=== PATIENT | female | born 1955 | race Caucasian/White ===

== ENCOUNTER → 2017-02-02 | Outpatient (CLI) | payer BC ==
[~2017-02-02] MED LIST: ASPI81TA25 PO; BIMA0.038 OPB; CLC100X PO; CMD/25 PO; FERR324T PO; SENN8.6T2 PO; citracel PO
--- NOTE | 2017-02-02 10:37 | DIAGNOSTIC IMAGING REPORT ---
RIGHT ANKLE MIN 3 VIEWS ROUTINE CLINICAL HISTORY: RIGHT ANKLE PAIN Right pain. COMPARISON: None. DISCUSSION: Minimal degenerative change throughout the ankle. Heel spur. Ossification Achilles tendon insertion. There is no evidence for soft tissue swelling. IMPRESSION: Heel spur. Mild degenerative change. No acute process. Electronically signed by: Omar He M.D. 02/02/2017 10:36 AM Dictated Date/Time: 02/02/2017 10:34 AM
== END | disposition home or self-care (01) ==
LOC: C.RAD1850 10:26
PROVIDERS: ATTEND Internal Medicine
DX: M25.571 Pain in right ankle and joints of right foot (principal); M25.471 Effusion, right ankle

== ENCOUNTER → 2017-06-01 | Outpatient (CLI) | payer BC | END | disposition home or self-care (01) | LOC: C.RDSM 10:34 | PROVIDERS: ATTEND Physical Medicine & Rehabilitation Sports Medicine | DX: M79.671 Pain in right foot (principal) ==

== ENCOUNTER 2018-12-07 10:32 | Inpatient (IN) ==
--- NOTE | 2018-11-22 14:02 | Anesthesiology Consultation ---
Date of Service November 22, 2018 Assessment & Plan (1) Encounter for pre-operative examination: Plan: - S/P RIGHT FOOT CORRECTION/2ND TOE CROSSOVER DEFORMITY CORRECTION= 05/26/18= [place] [facility] [place]io=07/20/18= prior chest heaviness resolved spontaneously (suspected related to depression/recent of her ). Continued on same regimen. Per cardio note= 11/24/18= Patient "does not have CAD or CHF. Her SSS is well controlled with her PPM.. She is consider[ed] a low to intermediate risk for surgery. The pacer should be interrogated preoperatively to determine the degree of pacer dependence and if needed changed to a non sensing mode." Reese Caceres (OR) made aware of cardio recommendations regarding pacemaker perioperatively- she voiced understanding and will arrange for pacer rep to be available DOS. Chart Review Chart Review: Acceptable Risk for Surgery and Patient seen in Pre Admission Testing Teaching & Discussion Pre-Anesthesia Teaching/Discussion Notes: Instructed NPO after midnight before surgery,except medications with 15 cc of water. Medication instructions provided according to the PAT guidelines. History Surgery Operation Date: 12/07/18 09:05 Proposed Procedures p Right Reverse Total Shoulder Replacement - Phani Plascencia, DO Height/Weight Height: 5 ft 4 in Weight: 113.4 kg Allergies Allergy/AdvReac Type Severity Reaction Status Date / Time Sulfa (Sulfonamide Allergy Severe HOT Verified 11/08/18 10:55 Antibiotics) FLASHES,SWEATING,DIFFICULTY BREATHING propoxyphene Allergy Intermediate "BODY Verified 11/08/18 10:55 JERKS"-HYPERACTIVE Medications Home Medications Medication Instructions Recorded Confirmed Last Taken cholecalciferol (vitamin D3) 1,000 unit PO QAM 11/08/18 11/08/18 Unknown [Vitamin D3] ibuprofen [Advil] 800 mg PO QID PRN 11/08/18 11/08/18 Unknown losartan 50 mg PO QAM 11/08/18 11/08/18 Unknown metoprolol succinate 50 mg PO QAM 11/08/18 11/08/18 Unknown montelukast 10 mg PO QAM 11/08/18 11/08/18 Unknown omeprazole 20 mg PO QAM 11/08/18 11/08/18 Unknown sumatriptan succinate 25 mg PO UD PRN 11/08/18 11/08/18 Unknown tramadol 50 mg PO Q6H PRN 11/08/18 11/08/18 Unknown zinc 50 mg PO QAM 11/08/18 11/08/18 Unknown Past Medical History Medical History Chronic back pain LOWER BACK GERD (gastroesophageal reflux disease) CONTROLLED Glaucoma Hypertension Migraine Morbid obesity Osteoarthritis Pacemaker BIOTRONIK; IMPLANTED 10/29 AVB/SSS; REPLACEED Pulmonary hypertension MILD TO MODERATE (42-47MMHG) Past Family History Family History Father Family hx of colon cancer Past Surgical History Surgical History H/O foot surgery RIGHT FOOT CORRECTION/2ND TOE CROSSOVER DEFORMITY CORRECTION= 05/26/18= [place] [facility] [place]/O of nasal cauterization History of appendectomy History of cardiac cath 2015= NO STENTS History of cataract surgery B/L History of section History of dilatation and curettage History of repair of rotator cuff RIGHT History of sinus surgery X2 History of total knee replacement B/L Pacemaker BIOTRONIK; IMPLANTED 10/29 AVB/SSS; REPLACEED Past Anesthesia History No Hx of Anesthesia Complications and No Family Hx of Anesthesia Complications History of PONV No Motion Sickness Screening History of Motion Sickness: Yes Social History Smoking Status: Never smoker Do You Dip or Chew Tobacco: No Hx Alcohol Use: No Hx Substance Use: No Exercise / Class Metabolic Activity III < 4 Walking/Shop/Light housework Review of Systems Patient denies chest pain, shortness of breath, cough, wheezing, palpitations. Physical Exam Vital Signs VITALS BP 136/69 P 59 TEMP 97.7 SP02 95%RA RESP 18 PHYSICAL Full neck and c-spine range of motion. Full TMJ range of motion. TMD 3 finger breaths Mallampati Score 3 Dentition: lower/upper partials Lungs: clear throughout to auscultation Cardiac: regular rate and rhythm, no murmurs noted Spine: normal Carotid arteries: negative bruit Extremities: no edema Testing Electrocardiogram Date: 05/04/18 Atrial paced rhythm at 60bpm. Chest X-Ray Date: 11/22/18 Findings: + NAD Echocardiogram Date: 08/10/16 EF 60%. No RWMA. Mild AV sclerosis/MR/PI. Mild to moderate pulmonary HTN. Estimated PASP 42-47mmhg. Moderate TR. Pacemaker wire noted in right heart. Grade I DD. Stress Test Date: 08/10/16 Type: nuclear (LEXISCAN) Stress EKG negative. Nuclear imaging findings of inferolateral ischemia. Subsequent 08/2016 cardiac cath done. Cardiac Catheterization Date: 08/31/16 Angiographically normal coronary arteries. At least moderate LVH. LVEF 70%. Maximize medical therapy recommended. Other Testing Pacer check= 09/13/19= [employer] "normal implantable pacemaker remote follow-up. No significant device-related abnormalities were noted." RAP 43%. RVP 0%. Mode DDD. Laboratory Results 11/22/18 14:22 11/22/18 14:22 Blood Type A Positive 11/22/18 14:22 Antibody Screen NEGATIVE 11/22/18 14: PT 10.6 Seconds (9.0-12.0) 11/22/18 14: INR 1.0 (0.9-1.1) 11/22/18 14:22 APTT 29.9 Seconds (21.0-31.0) 11/22/18 14:22
--- NOTE | 2018-11-22 14:03 | PAT Medication Instructions ---
Medication Instructions Date of Service November 22, 2018 Home Medications cholecalciferol (vitamin D3) 1,000 unit PO QAM ibuprofen [Advil] 800 mg PO QID PRN losartan 50 mg PO QAM metoprolol succinate 50 mg PO QAM montelukast 10 mg PO QAM omeprazole 20 mg PO QAM sumatriptan succinate 25 mg PO UD PRN tramadol 50 mg PO Q6H PRN zinc 50 mg PO QAM ASK your surgeon for instructions ibuprofen [Advil] 800 mg PO QID PRN DO NOT take the morning of surgery cholecalciferol (vitamin D3) 1,000 unit PO QAM losartan 50 mg PO QAM montelukast 10 mg PO QAM zinc 50 mg PO QAM Take morning of surgery With a small sip of water, OTHERWISE NOTHING TO EAT OR DRINK AFTER MIDNIGHT: metoprolol succinate 50 mg PO QAM omeprazole 20 mg PO QAM sumatriptan succinate 25 mg PO UD PRN (if needed) tramadol 50 mg PO Q6H PRN (okay to take up to 4 hours prior to surgery if needed) Other Notes If you have any questions please call us at [phone] or [phone] or [phone] or [phone]
--- NOTE | 2018-11-22 14:48 | XRay Report ---
XR chest Pre-admission PA/Lat CLINICAL HISTORY: pat preoperative evaluation COMPARISON STUDY: 12/30/2012 FINDINGS: Lungs are clear. Diaphragms are smooth. There is a permanent bipolar cardiac pacemaker. IMPRESSION: No acute process. The above report was generated using voice recognition software. It may contain grammatical, syntax or spelling errors. Electronically signed by: Omar He M.D. 11/22/2018 2:46 PM
[2018-11-22 14:56] LABS: Basophils # (auto) 0.03 K/uL (0-0.2); Basophils % (auto) 0.4 %; Eosinophils # (auto) 0.21 K/uL (0-0.5); Eosinophils % (auto) 3.1 %; Hematocrit (blood only) 42.3 % (37-47); Hemoglobin 13.9 g/dL (12.0-16.0); Immature Granulocytes # (auto) 0.02 K/uL (0.00-0.02); Immature Granulocytes % (auto) 0.3 %; Lymphocytes # (auto) 1.31 K/uL (1.2-3.4); Lymphocytes % (auto) 19.5 %; Mean Corpuscular Hgb Conc 32.9 g/dL (32-36); Mean Corpuscular Volume 90.8 fL (80-100); Mean Platelet Volume 10.5 fL (7.4-10.4); Monocytes # (auto) 0.44 K/uL (0.11-0.59); Monocytes % (auto) 6.5 %; Neutrophils # (auto) 4.72 K/uL (1.4-6.5); Neutrophils % (auto) 70.2 %; Platelet Count 193 K/uL (130-400); RDW Coefficient of Variation 14.3 % (11.5-14.5); RDW Standard Deviation 47.3 fL (36.4-46.3); Red Blood Count 4.66 M/uL (4.2-5.4); White Blood Count 6.73 K/uL (4.8-10.8)
[2018-11-22 15:10] LABS: Partial Thromboplastin Ratio 1.1; Partial Thromboplastin Time 29.9 Seconds (21.0-31.0); Prothrombin Time 10.6 Seconds (9.0-12.0)
[2018-11-22 16:02] LABS: Calcium 8.3 mg/dl (8.5-10.1); Creatinine Clr Calc Pharmacy 87.7 ml/min; Est GFR (African American) 90.3; Est GFR (Non-African American) 77.9
--- NOTE | 2018-12-06 19:54 | History & Physical Report ---
Date of Service December 06, 2018 Assessment & Plan (1) Rotator cuff arthropathy of right shoulder: We will proceed with a reverse right shoulder arthroplasty. Postoperatively she will be kept overnight at the hospital for postop medical management. She did have a MRSA nasal swab which was positive. Will use vancomycin perioperatively. She plans to use energy physical therapy upon discharge. Present on Admission?: Yes History of Present Illness Chief Complaint: Rotator cuff arthropathy of the right shoulder Primary Care Provider: Amilcar Mackenzie is a pleasant 63-year-old female who is been dealing with chronic increasing right shoulder pain. She had a rotator cuff repair done about 8 year s ago. She initially did well but it has been getting worse recently. CT arthrogram of the shoulder shows a large retracted rotator cuff tear. After failing conservative treatment. She has elected to proceed with a reverse right shoulder arthroplasty. Allergies Allergy/AdvReac Type Severity Reaction Status Date / Time Sulfa (Sulfonamide Allergy Severe HOT Verified 11/08/18 10:55 Antibiotics) FLASHES,SWEATING,DIFFICULTY BREATHING propoxyphene Allergy Intermediate "BODY Verified 11/08/18 10:55 JERKS"-HYPERACTIVE Home Medications Home Medications Medication Instructions Recorded Confirmed Type cholecalciferol (vitamin D3) 1,000 unit PO QAM 11/08/18 11/08/18 History [Vitamin D3] ibuprofen [Advil] 800 mg PO QID PRN 11/08/18 11/08/18 History losartan 50 mg PO QAM 11/08/18 11/08/18 History metoprolol succinate 50 mg PO QAM 11/08/18 11/08/18 History montelukast 10 mg PO QAM 11/08/18 11/08/18 History omeprazole 20 mg PO QAM 11/08/18 11/08/18 History sumatriptan succinate 25 mg PO UD PRN 11/08/18 11/08/18 History tramadol 50 mg PO Q6H PRN 11/08/18 11/08/18 History zinc 50 mg PO QAM 11/08/18 11/08/18 History Past Med/Surg History Medical History Chronic back pain LOWER BACK GERD (gastroesophageal reflux disease) CONTROLLED Glaucoma Hypertension Migraine Morbid obesity Osteoarthritis Pacemaker BIOTRONIK; IMPLANTED 10/29 AVB/SSS; REPLACED Pulmonary hypertension MILD TO MODERATE (42-47MMHG) Surgical History H/O foot surgery RIGHT FOOT CORRECTION/2ND TOE CROSSOVER DEFORMITY CORRECTION= 05/26/18[place] [facility] [place]er[place] History of appendectomy History of cardiac cath 2015= NO STENTS History of cataract surgery B/L History of section History of dilatation and curettage History of repair of rotator cuff RIGHT History of sinus surgery X2 History of total knee replacement B/L Pacemaker BIOTRONIK; IMPLANTED 10/29 AVB/SSS; REPLACED Family History Father Family hx of colon cancer Social History Preferred Language: Congolese Communication Ability: Effective Tunnel Man Required: No Beliefs That Will Affect Care: None Current Living Situation: Family Other Information That Helps Us Care for You: No Feels Safe at Home: Yes Safety Concerns: Feels Safe At This Time Smoking Status: Never smoker Hx Alcohol Use: No Hx Substance Use: No Review of Systems All systems reviewed & are unremarkable except as noted in HPI & below Physical Exam Constitutional: WD/WN, vitals as above Eyes: PERRL, conjunctivae normal, anicteric sclerae ENMT: external ear and nose normal, oropharynx normal Neck: trachea midline, no thyromegaly Respiratory: normal respiratory effort Cardiovascular: RRR, no murmur, no edema Gastrointestinal (Abdomen): normal bowel sounds, soft, nontender, no hepatosplenomegaly Musculoskeletal: Physical examination of the right shoulder reveals decreased range of motion and significant weakness. There is tenderness palpation along the anterior glenohumeral joint line. The right upper extremity is neurovascularly intact. Psychiatric: A+Ox3, euthymic affect Results & Data Diagnostic Findings Radiographs of the right shoulder show some signs of osteoarthritis with blunting of the greater tuberosity and some superior migration of the humeral head on the glenoid.
[~2018-12-07 10:32] MED LIST changes: +ACETAMINOPHEN 500 MG TAB PO SCH; -ASPI81TA25 PO; -BIMA0.038 OPB; +BUPIVACAINE 0.5 % 5 MG/1 ML PF 10ML VIAL ONE; +CEFAZOLIN 2000MG 2,000 MG/15 ML SYR IV SCH; -CLC100X PO; -CMD/25 PO; +DEXAMETHASONE SOD INJ 4 MG/ML VIAL ONE; +FAMOTIDINE 20 MG TAB PO SCH; -FERR324T PO; +GABAPENTIN 300 MG x 2 PO SCH; +LIDOCAINE HCL 2% 2 ML VIAL/AMP(20MG/ML) INFIL ONE; +LR 15ML/HR IV SCH; +LR 60ML/HR IV SCH; +ROPIVACAINE 0.5% 5 MG/ML 30 ML VIAL ONE; +ROPIVACAINE 0.5% HCL/PF 150 MG, BUPIVACAINE 0.5% MPF 30 ML, EPINEPHrine 30MG/30ML (OR U... INFIL SCH; -SENN8.6T2 PO; +TRANEXAMIC ACID 1,000 MG **IV Intra-op IV SCH; +TRANEXAMIC ACID 1,000 MG **IV Pre-op IV SCH; +VANCOMYCIN HCL 1,500 MG in SODIUM CHLORIDE 0.9% 500 ML IV STA; -citracel PO
--- NOTE | 2018-12-07 11:19 | History & Physical Bridge Note ---
Date of Service December 07, 2018 History & Physical Bridge Note I have examined the patient, reviewed the History & Physical and in the interval since the performance of the History & Physical I have noted the following changes of clinical significance: no changes noted
[2018-12-07] MEDS ORDERED: POVIDONE-IODINE OP SOLN 30 ML BTL ONE (11:47)
[2018-12-07] MEDS ORDERED: ROPIVACAINE 0.5% 5 MG/ML 30 ML VIAL ONE (12:55)
[2018-12-07] MEDS ORDERED: EPINEPHrine INJ 1 MG/ML AMP ONE (12:55)
[2018-12-07] MEDS ORDERED: MIDAZOLAM HCL 1 MG/ML 2ML VIAL ONE (13:04)
[2018-12-07] MEDS ORDERED: fentaNYL citrate 100 MCG/2 ML VIAL ONE (13:05)
[2018-12-07] MEDS ORDERED: KETAMINE HCL INJ 50 MG/ML 10 ML VIAL ONE (13:05)
[2018-12-07] MEDS ORDERED: SODIUM CHLORIDE 0.9% INJ 10 ML VIAL ONE (14:07)
[2018-12-07] MEDS ORDERED: CEFAZOLIN 250 MG/ML 1 GM VIAL ONE (14:07)
[2018-12-07] MEDS ORDERED: ONDANSETRON INJ 2 MG/ML 2 ML VIAL ONE (14:14)
[2018-12-07] MEDS ORDERED: PROPOFOL IV EMULSION 10 MG/ML 20 ML VIAL IV ONE (14:14)
[2018-12-07] MEDS ORDERED: DEXAMETHASONE SOD INJ 4 MG/ML VIAL ONE (14:14)
[2018-12-07] MEDS ORDERED: LIDOCAINE HCL 2% 2 ML VIAL/AMP(20MG/ML) INFIL ONE (14:14)
[2018-12-07] MEDS ORDERED: HYDROmorphone INJ 1 MG/ML SYRINGE IV PRN (14:25)
[2018-12-07] MEDS ORDERED: ONDANSETRON INJ 2 MG/ML 2 ML VIAL IV PRN (14:25)
[2018-12-07] MEDS ORDERED: LABETALOL HCL IV 5 MG/ML 20ML IV PRN (14:25)
[2018-12-07] MEDS ORDERED: ePHEDrine sulfate 50 MG/ML AMP IV PRN (14:25)
[2018-12-07] MEDS ORDERED: fentaNYL citrate 100 MCG/2 ML VIAL IV PRN (14:25)
[2018-12-07] MEDS ORDERED: ATROPINE SULFATE 0.1 MG/ML 10ML SYR IV PRN (14:25)
[2018-12-07] MEDS ORDERED: PHENYLEPHRINE 100MCG/ML 5ML SYR IV PRN (14:25)
[2018-12-07] MEDS ORDERED: MEPERIDINE HCL 25 MG/ML CARP IV PRN (14:25)
[2018-12-07] MEDS ORDERED: HYDROmorphone INJ 2 MG/ML SYR/VIAL ONE ×2 (14:26→14:33)
[2018-12-07] MEDS: ORTHO JOINT ANESTHETIC ONE ×2 (14:43→16:59)
--- NOTE | 2018-12-07 14:56 | Operative Report ---
Post Operative Report Pre & Post Diagnosis Operation Date: 12/07/18 12:35 Pre-Op Diagnosis: Chronic Rotator Cuff Tear Right Shoulder Post-Op Diagnosis: Chronic Rotator Cuff Tear Right Shoulder Procedure Operation Date: 12/07/18 12:35 Actual Procedures p Right Reverse Total Shoulder Replacement(Right) - Phani Plascencia DO Surgeon Phani Plascencia DO Access Rep Phani Fitzpatrick PAC Estimated Blood Loss 200 Findings Consistent with Post-Op Diagnosis Specimens Right humeral head Complications none Disposition Disposition: Recovery Room Indications Avril is a pleasant 63-year-old female who underwent a open right rotator cuff repair about 10 years ago. She initially did well but lately her shoulder is been much worse. She is having difficulty elevating above chest level. She had chronic pain in her shoulder. After failing conservative treatment. She elected to proceed with a reverse shoulder arthroplasty. Description of Procedure Implants used: I used a [employer]omet Comprehensive reverse total shoulder arthroplasty system with a size 12 press fit mini humeral stem, a standard humeral tray and a standard humeral bearing, a 25 mm mini baseplate with a 6.5 mm central screw and superior and inferior locking screws, and a size 36 mm eccentric glenosphere. The patient arrived at [facility] for the above procedure. There were seen in the preoperative holding area and the operative extremity was id entified and signed. They were given a preoperative antibiotic and an interscalene nerve block. They were taken back to the operating room, laid on table in supine position, and put under general anesthesia. They were then put into the beachchair position. The shoulder was then prepped and draped in sterile fashion. A timeout was done and the patient in the operative extremity was properly identified. A deltopectoral approach was used. Dissection was taken down through the fascia and the deltoid was retracted laterally and the conjoined tendon was retracted medially. The anterior shoulder was exposed. The long head of the biceps tendon was tenodesed to the upper border of the pectoralis major. The subscapularis was then released off the lesser tuberosity with a centimeter of cuff tissue remaining. The inferior capsule was released and the humeral head was dislocated. A canal finding reamer was sent down the center of the humeral canal. Sequential reaming up to a size 12 reamer was done. Off that reamer, a proximal humeral resection guide was placed. The proximal humerus was resected at 135 of inclination and 25 of retroversion. Osteophytes were then removed and the glenoid was exposed. Time was spent doing a complete capsular and labral release. The glenoid guide was then placed in the inferior aspect of the glenoid. A 3.2 mm Steinmann pin was then placed into the glenoid vault at 10 of inclination. The glenoid baseplate was then reamed. The final size 25 mm mini baseplate was then impacted in the place. A 6.5 mm central screw was then placed followed by superior and inferior locking screws. A 36 mm eccentric glenoid sphere was then impacted into place. Surrounding soft tissues were then injected with 100 cc an orthopedic pain control cocktail. The proximal humerus was then exposed. Sequential broaching of the humerus up to a size 12 broach was done. Off that broach a standard humeral tray was trialed. The shoulder was then reduced, brought through a full range of motion and felt to be stable. The shoulder was then dislocated and the broach was removed. The final size 12 mini press-fit humeral stem was then impacted into place. A standard humeral bearing was then snapped onto a standard humeral tray and the ring-lock mechanism was engaged. The humeral tray was then impacted onto the humeral stem. The shoulder was once again reduced, brought through a full range of motion and felt to be stable. The subscapularis was chronically torn and unable to be repaired. A dilute betadyne lavage was then done for 3 minutes. The joint was then irrigated with normal saline solution. Hemostasis was obtained. The skin was then closed with 2-0 Vicryl, 3-0V lock suture, and valentine. A soft dressing and a regular arm sling was placed. The patient was then extubated and transferred to a hospital bed. They were taken to the postanesthesia care unit in stable condition. They tolerated the procedure well. I attest to the content of the Intraoperative Record and any orders documented therein. Any exceptions are noted below.
[2018-12-07] MEDS ORDERED: NEOSTIGMINE METHYLSULFATE 5 MG/5 ML SYR ONE (15:08)
[2018-12-07] MEDS ORDERED: GLYCOPYRROLATE 0.2 MG/ML VIAL ONE (15:08)
[2018-12-07] MEDS ORDERED: KETOROLAC 30 MG/ML VIAL ONE ×2 (15:08)
--- NOTE | 2018-12-07 15:47 | Anesthesiology Progress Note ---
Date of Service December 07, 2018 Anesthesia Post Procedure Vital Signs Vital Signs: Temp Pulse Pulse Resp BP Pulse Ox 12/07/18 15:40 62 17 126/77 95 12/07/18 15:30 60 19 127/72 97 12/07/18 15:20 60 21 120/71 97 12/07/18 15:14 36.0 C L 62 12 121/69 100 12/07/18 11:09 36.3 C L 62 20 166/82 H 95 Pain Intensity Right Shoulder: Pain Intensity: 0 Notes Mental Status: alert / awake / arousable and participated in evaluation Patient Amnestic to Procedure: Yes Nausea / Vomiting: adequately controlled Pain: adequately controlled Airway Patency, RR, SpO2: stable & adequate BP & HR: stable & adequate Hydration State: stable & adequate Anesthetic Complications: no major complications apparent and Pt Satisfied with anesthetic care Notes: mild right rib pain, likely 2/2 positioning in OR. no other complaints. block working well. meets pacu discharge criteria.
--- NOTE | 2018-12-07 15:59 | XRay Report ---
RIGHT SHOULDER 2 VIEWS CLINICAL HISTORY: Postoperative examination. FINDINGS: 2 portable views of the right shoulder are obtained. A right shoulder arthroplasty is in ne ar-anatomic alignment. No acute fracture is seen. There are expected postoperative changes overlying the right shoulder including skin clips, subcutaneous gas, and soft tissue swelling. Productive degen erative change is noted at the acromioclavicular joint. The visualized right lung parenchyma appears clear noting basilar atelectasis. Pacemaker leads are noted. IMPRESSION: Expected postoperative findings status post right shoulder arthroplasty. No acute fractur e is seen. Electronically signed by: Pedro Nina M.D. 12/07/2018 3:57 PM
[2018-12-07] MEDS ORDERED: NALOXONE HCL 0.4 MG/1 ML VIAL/CARP IV PRN (16:34)
[2018-12-07] MEDS ORDERED: HYDROmorphone INJ 0.5 MG/0.5 ML SYR IV PRN (16:34)
[2018-12-07] MEDS ORDERED: MAGNESIUM HYDROXIDE SUSP 30 ML UDC PO PRN (16:34)
[2018-12-07] MEDS ORDERED: METOCLOPRAMIDE HCL INJ 5 MG/ML 2 ML VIAL IV PRN (16:34)
[2018-12-07] MEDS ORDERED: BISACODYL 10 MG SUPP PR PRN (16:34)
[2018-12-07] MEDS ORDERED: HYDROmorphone INJ 0.5 MG/0.5 ML SYR ONE (16:50)
[2018-12-07] MEDS ORDERED: OXYCODONE HCL IR 5 MG TAB (IMMEDIATE RELEASE) ONE (17:10)
[2018-12-07] MEDS: SODIUM CHLORIDE 0.9% 1000ML 1,000 ML IV SCH (20:10)
[2018-12-07] MEDS ORDERED: SENNA 8.6 MG TAB PO SCH (21:00)
[2018-12-07] MEDS: OXYCODONE HCL IR 5 MG TAB (IMMEDIATE RELEASE) PO PRN (21:21)
[2018-12-07] MEDS: DOCUSATE SODIUM 100 MG CAP PO SCH (21:24)
[2018-12-07] MEDS: CEFAZOLIN 2000MG 2,000 MG/15 ML SYR IV SCH (21:25)
[2018-12-07] MEDS: ACETAMINOPHEN 500 MG TAB PO SCH (21:25)
[2018-12-07] MEDS: ONDANSETRON INJ 2 MG/ML 2 ML VIAL IV PRN (21:33)
[2018-12-07] MEDS: KETOROLAC TROMETHAMINE 15 MG/ML VIAL IV SCH (23:34)
[2018-12-08] MEDS: OXYCODONE HCL IR 5 MG TAB (IMMEDIATE RELEASE) PO PRN ×3 (01:26→12:21)
[2018-12-08] MEDS: CEFAZOLIN 2000MG 2,000 MG/15 ML SYR IV SCH (05:12)
[2018-12-08] MEDS: ACETAMINOPHEN 500 MG TAB PO SCH (05:13)
[2018-12-08] MEDS: KETOROLAC TROMETHAMINE 15 MG/ML VIAL IV SCH ×2 (05:13→12:20)
[2018-12-08] MEDS: SODIUM CHLORIDE 0.9% 1000ML 1,000 ML IV SCH (05:13)
[2018-12-08] MEDS: ONDANSETRON INJ 2 MG/ML 2 ML VIAL IV PRN ×2 (05:20→12:21)
[2018-12-08 06:41] LABS: Hematocrit (blood only) 40.5 % (37-47); Hemoglobin 13.2 g/dL (12.0-16.0); Immature Granulocytes # (auto) 0.05 K/uL (0.00-0.02); Immature Granulocytes % (auto) 0.3 %; Lymphocytes # (auto) 0.75 K/uL (1.2-3.4); Lymphocytes % (auto) 4.3 %; Mean Corpuscular Hgb Conc 32.6 g/dL (32-36); Mean Corpuscular Volume 90.6 fL (80-100); Mean Platelet Volume 10.4 fL (7.4-10.4); Monocytes # (auto) 0.68 K/uL (0.11-0.59); Monocytes % (auto) 3.9 %; Neutrophils # (auto) 15.85 K/uL (1.4-6.5); Neutrophils % (auto) 91.5 %; Platelet Count 187 K/uL (130-400); RDW Coefficient of Variation 14.3 % (11.5-14.5); RDW Standard Deviation 47.4 fL (36.4-46.3); Red Blood Count 4.47 M/uL (4.2-5.4); White Blood Count 17.33 K/uL (4.8-10.8)
[2018-12-08 07:05] LABS: BUN Creatinine Ratio 28.7 (10-20); Calcium 8.6 mg/dl (8.5-10.1); Creatinine Clr Calc Pharmacy 95.2 ml/min; Est GFR (African American) 100.9; Potassium 4.2 mmol/L (3.5-5.1)
--- NOTE | 2018-12-08 08:18 | Anesthesiology Progress Note ---
Date of Service December 08, 2018 Anesthesia Post Procedure Vital Signs Vital Signs: Temp Pulse Pulse Pulse Resp BP Pulse Ox 12/08/18 07:01 36.4 C L 60 18 117/70 93 12/08/18 03:01 36.5 C 59 L 17 98/63 L 93 12/07/18 22:54 36.4 C L 59 L 15 124/70 94 12/07/18 19:16 36.3 C L 58 L 18 147/85 H 95 12/07/18 18:28 60 17 137/86 96 12/07/18 17:20 62 18 123/82 96 12/07/18 16:48 61 17 134/80 95 12/07/18 16:20 36.5 C 60 16 131/80 93 12/07/18 16:00 62 20 126/70 95 12/07/18 15:50 36.2 C L 62 17 126/66 94 12/07/18 15:40 62 17 126/77 95 12/07/18 15:30 60 19 127/72 97 12/07/18 15:20 60 21 120/71 97 12/07/18 15:14 36.0 C L 62 12 121/69 100 12/07/18 11:09 36.3 C L 62 20 166/82 H 95 Pain Intensity Right Shoulder: Pain Intensity: 2 Right Ribs: Pain Intensity: 3 Notes Mental Status: alert / awake / arousable and participated in evaluation Nausea / Vomiting: adequately controlled Pain: adequately controlled Airway Patency, RR, SpO2: stable & adequate BP & HR: stable & adequate Hydration State: stable & adequate Neuraxial Anesthesia: sensory block is resolving Anesthetic Complications: Pt Satisfied with anesthetic care
--- NOTE | 2018-12-08 08:27 | Orthopedic Progress Note ---
Date of Service December 08, 2018 Assessment & Plan (1) Rotator cuff arthropathy of right shoulder: Overall she is doing fairly well. I told her that the flank pain that she is having is likely from positioning during the surgery and she understands that. She will be seen by physical therapy today to do hand, wrist, and pendulum exercises. She was asking for some Ambien to help her sleep when she went home. I am also going to place her on doxycycline for 10 days because of her history of MRSA. She is allergic to Bactrim. She will be discharged to home later this morning and I will see her in the office in 2 weeks. Present on Admission?: Yes Subjective Avril was seen and examined at bedside this morning. Overall she is doing fairly well she is having a little bit of pain in her right ribs. Her she is not having any pain in her shoulder. She is happy with her progress and has no complaints. Physical Exam Vital Signs (Past 24 Hours): Last Vital Signs Temp 36.4 C L 12/08/18 07:01 Pulse 60 12/08/18 07:01 Resp 18 12/08/18 07:01 BP 117/70 12/08/18 07:01 Pulse Ox 93 12/08/18 07:01 Musculoskeletal: On physical examination of the right shoulder work, the dressing is clean and dry. Her radial, median, and ulnar nerves are checked and intact at the wrist. She is wearing her sling as instructed. Results & Data Laboratory Results H & H 11/22/18 12/08/18 Range/Units 14:22 06:21 Hgb 13.9 13.2 (12.0-16.0) g/dL Hct 42.3 40.5 (37-47) % Coagulation 11/22/18 Range/Units 14:22 INR 1.0 (0.9-1.1) Diagnostic Findings Postoperative x-rays of the right shoulder show the prosthesis to be in anatomic alignment without any evidence of fracture dislocation or loosening.
--- NOTE | 2018-12-08 08:30 | Discharge Summary ---
Date of Service December 08, 2018 Admission HPI Per Admitting Provider Avril is a pleasant 63-year-old female who is been dealing with chronic increasing right shoulder pain. She had a rotator cuff repair done about 8 years ago. She initially did well but it has been getting worse recently. CT arthrogram of the shoulder shows a large retracted rotator cuff tear. After failing conservative treatment. She has elected to proceed with a reverse right shoulder arthroplasty. Specialty Data Orthopedic H & H 11/22/18 12/08/18 Range/Units 14:22 06:21 Hgb 13.9 13.2 (12.0-16.0) g/dL Hct 42.3 40.5 (37-47) % Coagulation 11/22/18 Range/Units 14:22 INR 1.0 (0.9-1.1) Discharge Data Consultations 12/07/18 16:34 Consult Case Management - Discharge Planning Routine Procedures Performed Operation Date: 12/07/18 12:35 Actual Procedures p Right Reverse Total Shoulder Replacement(Right) - Phani Plascencia DO Hospital Course (1) Rotator cuff arthropathy of right shoulder: On December 07, 2018 Avril arrived at [facility] and underwent a right reverse shoulder arthroplasty without complication. She had a general anesthetic and a right interscalene nerve block. Postoperatively she was placed in a sling and discharged to general orthopedic floors. Her hospital course was uneventful. On postop day #1 her H&H was stable and her pain was well controlled. She was complaining of a little bit of flank and rib pain. She was having trouble sleeping at night as well. She was allergic to the vancomycin and she is allergic to sulfa antibiotics. I am going to start her on doxycycline 100 mg twice a day for 10 days because of her MRSA history. I am also going to give her some Ambien to help her sleep and some Zofran to help with nausea. She will be discharged home later this morning with oxycodone as well for pain. She will be seen by physical therapy this morning for range of motion exercises and as long as she is doing well she can be discharged home. She will follow-up with orthopedics in 2 weeks. Discharge Instructions Home Medications Medication Instructions Recorded Confirmed cholecalciferol (vitamin D3) 1,000 unit PO QAM 11/08/18 12/07/18 [Vitamin D3] ibuprofen [Advil] 800 mg PO QID PRN 11/08/18 12/07/18 losartan 50 mg PO QAM 11/08/18 12/07/18 metoprolol succinate 50 mg PO QAM 11/08/18 11/08/18 montelukast 10 mg PO QAM 11/08/18 12/07/18 omeprazole 20 mg PO QAM 11/08/18 11/08/18 sumatriptan succinate 25 mg PO UD PRN 11/08/18 12/07/18 tramadol 50 mg PO Q6H PRN 11/08/18 12/07/18 zinc 50 mg PO QAM 11/08/18 12/07/18 Previous Rx's Medication Instructions Recorded doxycycline hyclate 100 mg PO BID 10 Days #20 cap 12/08/18 ondansetron HCl [Zofran] 4 mg PO Q8H PRN 4 Days #12 tab 12/08/18 oxycodone 5 - 10 mg PO Q4H PRN #40 tab 12/08/18 zolpidem [Ambien] 5 mg PO HS PRN #15 tab 12/08/18
[2018-12-08] MEDS: DOCUSATE SODIUM 100 MG CAP PO SCH (08:58)
[2018-12-08] MEDS ORDERED: METOPROLOL SUCC 50MG EXT REL TAB PO SCH (09:00)
[2018-12-08] MEDS ORDERED: PANTOprazole 40 MG TAB PO SCH (09:00)
[2018-12-08] MEDS ORDERED: MONTELUKAST SODIUM 10 MG TABLET PO SCH (09:00)
[2018-12-08] MEDS ORDERED: MULTIVITAMIN TAB PO SCH (09:00)
[2018-12-08] MEDS ORDERED: LOSARTAN POTASSIUM 50 MG TAB PO SCH (09:00)
== END 2018-12-08 12:57 | disposition home or self-care (01) | DRG 483 ==
LOC: ASU 10:32 → 3E 15:01